=== PATIENT | female | born 1945 | race Caucasian/White ===

== ENCOUNTER 2018-02-11 11:11 | Day surgery (SDC) | payer MEDICARE, OTHER ==
[~2018-02-11] VITALS: Ht 162.6 cm; Wt 102.4 kg
[2018-02-11] VITALS (9 sets, daily range): BP systolic 141–194; BP diastolic 62–99
[2018-02-11] MEDS ORDERED: LOSA50TA3 PO (11:36)
[2018-02-11] MEDS ORDERED: METO-539 PO (11:36)
[2018-02-11] MEDS ORDERED: LANS30CA37 PO (11:36)
[2018-02-11] MEDS ORDERED: GLUC-237 (11:36)
[2018-02-11] MEDS ORDERED: NAPR1TAB28 PO (11:36)
[2018-02-11] MEDS ORDERED: MULT-1085 PO (11:36)
[2018-02-11] MEDS ORDERED: ACET-1025 (11:36)
[2018-02-11] MEDS ORDERED: sod bicarbonate 150mEq in D5W 1,150 ML IV ONE (11:40)
[2018-02-11] MEDS ORDERED: diphenhydrAMINE 25mg capsule PO PRN (11:40)
[2018-02-11 12:45] LABS: ANION GAP 8 (8-16); BLOOD UREA NITROGEN 17 MG/DL (7-18); BUN/CREATININE RATIO 21.5 (6.6-38.0); CALCIUM 9.5 MG/DL (8.5-10.1); CHLORIDE 103 MMOL/L (99-107); CREATININE 0.79 MG/DL (0.40-0.90); GLUCOSE 92 MG/DL (70-104); MAGNESIUM 2.3 MG/DL (1.5-2.4); POTASSIUM 3.9 MMOL/L (3.5-5.1); PROTHROMBIN TIME 10.6 SECONDS (9.0-12.0); SODIUM 143 MMOL/L (135-145); TOTAL CARBON DIOXIDE 31.8 MMOL/L (24-32); eGFR 72 ML/MIN
[2018-02-11 12:46] LABS: BASOPHILS # (AUTO) 0.1 X10'3 (0-0.2); BASOPHILS % (AUTO) 1.4 % (0-1); EOSINOPHILS # (AUTO) 0.3 X10'3 (0-0.9); EOSINOPHILS % (AUTO) 4.5 % (0-6); LYMPHOCYTES # (AUTO) 1.7 X10'3 (1.1-4.8); LYMPHOCYTES % (AUTO) 27.4 % (21-51); MEAN CORPUSCULAR HEMOGLOBIN 30.5 PG (27.0-31.0); MEAN CORPUSCULAR HGB CONC 33.3 % (33.0-36.5); MEAN CORPUSCULAR VOLUME 91.3 FL (78-98); MEAN PLATELET VOLUME 8.7 FL (7.4-10.4); MONOCYTES # (AUTO) 0.5 X10'3 (0-0.9); MONOCYTES % (AUTO) 8.8 % (2-12); NEUTROPHILS # (AUTO) 3.6 X10'3 (1.8-7.7); NEUTROPHILS % (AUTO) 57.9 % (42-75); PRE OP HEMATOCRIT 44.5 % (35.0-45.0); PRE OP HEMOGLOBIN 14.8 g/dL (12.0-16.0); PRE OP PLATELET COUNT 279 X10'3 (140-440); RED BLOOD COUNT 4.87 X10'6 (4.20-5.60); RED CELL DISTRIBUTION WIDTH 12.4 % (11.5-14.5)
[2018-02-11] MEDS ORDERED: pneumococcal 23-VAL P-sac vacc 25 mcg/0.5ml vial IMVAC ONE (12:55)
[2018-02-11] MEDS ORDERED: fentaNYL/PF 50MCG/1 ML 2ML syringe ONE (13:09)
[2018-02-11] MEDS ORDERED: iohexol 350MG/ML 100ml bottle IV ONE (13:10)
[2018-02-11] MEDS ORDERED: iohexol 350 MG/ML 50ML vial IV ONE (13:10)
[2018-02-11] MEDS ORDERED: midazolam 2 mg/2 ml injection ONE (13:10)
[2018-02-11] MEDS ORDERED: LIDOcaine 1% (10mg/ml)w/preservative injection 20ml MDV ONE (13:10)
[2018-02-11] MEDS ORDERED: cloNIDine 0.1 mg tablet PO SCH (14:33)
[2018-02-11] MEDS ORDERED: metoprolol succinate 25mg (24-HOUR) SR. Tablet PO SCH (15:00)
[2018-02-11] MEDS ORDERED: losartan 50mg tablet PO SCH (15:00)
[2018-02-11] MEDS ORDERED: naproxen sodium 220mg tablet PO SCH (20:00)
[2018-02-12] MEDS ORDERED: pantoprazole 40mg Tablet.DR PO SCH (07:30)
[2018-02-12] MEDS ORDERED: multivitamins, therapeutics tablet PO SCH (08:00)
== END 2018-02-11 17:55 | disposition home or self-care (01) ==
LOC: SSTAY O 11:11
PROVIDERS: ATTEND Internal Medicine Cardiovascular Disease
DX: I25.10 Atherosclerotic heart disease of native coronary artery without angina pectoris (principal); I10 Essential (primary) hypertension; E78.5 Hyperlipidemia, unspecified; K21.9 Gastro-esophageal reflux disease without esophagitis; M19.90 Unspecified osteoarthritis, unspecified site; Z72.89 Other problems related to lifestyle; Z87.891 Personal history of nicotine dependence; Z88.5 Allergy status to narcotic agent; Z90.49 Acquired absence of other specified parts of digestive tract; Z90.89 Acquired absence of other organs; Z79.891 Long term (current) use of opiate analgesic; Z79.899 Other long term (current) drug therapy; Z98.890 Other specified postprocedural states
CPT/HCPCS: 36415; 80048; 83735; 85025; 85610; 93005; 93458; 99152; 99153; A6257; C1760; C1769; C1894; J1644; J2001; J2250; J3010; Q0163; Q9967; A4620

== ENCOUNTER 2023-04-04 09:19 | Outpatient (CLI) | payer MEDICARE, OTHER ==
[~2023-04-04 09:19] MED LIST: ACET-1025 PO; ASPI-1 PO; CELE-127 PO; LANS30CA37 PO; METO-539 PO; MULT-1085 PO; NAPR1TAB28 PO; OLME40TA18 PO
[2023-04-04 10:11] LABS: BASOPHILS # (AUTO) 0.1 X10'3 (0-0.2); EOSINOPHILS # (AUTO) 0.3 X10'3 (0-0.9); EOSINOPHILS % (AUTO) 4.1 % (0-6); HEMATOCRIT 38.4 % (35.0-45.0); HEMOGLOBIN 12.9 g/dl (12.0-16.0); LYMPHOCYTES # (AUTO) 1.4 X10'3 (1.1-4.8); LYMPHOCYTES % (AUTO) 19.4 % (21-51); MEAN CORPUSCULAR HEMOGLOBIN 31.2 PG (27.0-31.0); MEAN CORPUSCULAR HGB CONC 33.7 g/dL (33.0-36.5); MEAN CORPUSCULAR VOLUME 92.5 FL (78-98); MEAN PLATELET VOLUME 8.3 FL (7.4-10.4); MONOCYTES # (AUTO) 0.7 X10'3 (0-0.9); MONOCYTES % (AUTO) 9.9 % (2-12); NEUTROPHILS # (AUTO) 4.9 X10'3 (1.8-7.7); NEUTROPHILS % (AUTO) 65.6 % (42-75); PLATELET COUNT 266 X10'3 (140-440); RED BLOOD COUNT 4.15 X10'6 (4.20-5.60); RED CELL DISTRIBUTION WIDTH 12.8 % (11.5-14.5); WHITE BLOOD COUNT 7.5 X10'3 (4.5-11.0)
[2023-04-04 10:15] LABS: APTT 29 SECONDS (22-32)
[2023-04-04 10:28] LABS: ALANINE AMINOTRANSFERASE 19 U/L (12-78); ALBUMIN 3.7 G/DL (3.4-5.0); ALBUMIN/GLOBULIN RATIO 1.3 (1.1-1.5); ALKALINE PHOSPHATASE 98 IU/L (46-116); ANION GAP 6 (8-16); ASPARTATE AMINO TRANSFERASE 17 U/L (10-37); BILIRUBIN,TOTAL 0.5 MG/DL (0.1-1.0); BLOOD UREA NITROGEN 18 MG/DL (7-18); BUN/CREATININE RATIO 26.5 (10.0-20.0); CALCIUM 8.8 MG/DL (8.5-10.1); CHLORIDE 105 MMOL/L (99-107); CREATININE 0.68 MG/DL (0.40-0.90); GLUCOSE 94 MG/DL (70-104); POTASSIUM 4.1 MMOL/L (3.5-5.1); PRO BRAIN NATRIURETIC PEPTIDE 700 PG/ML (0-450); SODIUM 140 MMOL/L (135-145); TOTAL CARBON DIOXIDE 28.6 MMOL/L (24-32); TOTAL PROTEIN 6.6 G/DL (6.4-8.2); eGFR 84 ML/MIN
[2023-04-04] MEDS ORDERED: IODIXANOL 320 MG/ML INFUS..BTL 100ML IV ONE (12:03)
== END 2023-04-04 23:59 | disposition home or self-care (01) ==
LOC: RAD 09:19
PROVIDERS: ATTEND Internal Medicine Cardiovascular Disease
DX: I65.23 Occlusion and stenosis of bilateral carotid arteries (principal); I35.0 Nonrheumatic aortic (valve) stenosis; R06.02 Shortness of breath; M43.17 Spondylolisthesis, lumbosacral region; M47.816 Spondylosis without myelopathy or radiculopathy, lumbar region; Z90.49 Acquired absence of other specified parts of digestive tract; Z90.710 Acquired absence of both cervix and uterus; Z96.612 Presence of left artificial shoulder joint
CPT/HCPCS: 36415; 71046; 71275; 74174; 75574; 80053; 83880; 85025; 85610; 85730; 93880; 94010; 94727; 94729; J3490; Q9967

== ENCOUNTER 2023-04-19 13:42 | Outpatient (CLI) | payer MEDICARE, OTHER ==
[~2023-04-19] VITALS: Ht 160 cm; Wt 98.8 kg
[2023-04-19 14:51] VITALS: BP 227/92; PULSE 72; RESP 16; TEMP 97.4; O2SAT 97
== END 2023-04-19 23:59 | disposition home or self-care (01) ==
LOC: TAVR 13:42
PROVIDERS: ATTEND Internal Medicine Cardiovascular Disease
DX: I08.8 Other rheumatic multiple valve diseases (principal); R06.02 Shortness of breath; I65.29 Occlusion and stenosis of unspecified carotid artery; I11.9 Hypertensive heart disease without heart failure; E78.5 Hyperlipidemia, unspecified
CPT/HCPCS: 93306

== ENCOUNTER 2023-05-11 07:29 | Day surgery (SDC) | payer MEDICARE, OTHER ==
[~2023-05-11] VITALS: Ht 162.6 cm; Wt 97.7 kg
[2023-05-11] VITALS (10 sets, daily range): BP systolic 123–175; BP diastolic 63–90; PULSE 69–87; RESP 16–22; TEMP 98; O2SAT 93–99
[2023-05-11] MEDS ORDERED: diphenhydrAMINE 25mg capsule PO PRN (08:10)
[2023-05-11] MEDS ORDERED: normal saline 1,000 ML IV SCH (08:10)
[2023-05-11] MEDS ORDERED: sodium bicarbonate 1meq/ml syr 150 ML in dextrose 5%-water 1,000 ML IV ONE (08:10)
[2023-05-11] MEDS ORDERED: ROSU20TA73 PO (08:32)
[2023-05-11 08:52] LABS: ALBUMIN 4.3 G/DL (3.4-5.0); ANION GAP 8 (8-16); BLOOD UREA NITROGEN 18 MG/DL (7-18); BUN/CREATININE RATIO 20.2 (10.0-20.0); CALCIUM 9.2 MG/DL (8.5-10.1); CHLORIDE 101 MMOL/L (99-107); CREATININE 0.89 MG/DL (0.40-0.90); GLUCOSE 102 MG/DL (70-104); POTASSIUM 3.9 MMOL/L (3.5-5.1); SODIUM 140 MMOL/L (135-145); eCRCL 46 ML/MIN; eGFR 62 ML/MIN
[2023-05-11 08:54] LABS: BASOPHILS # (AUTO) 0.1 X10'3 (0-0.2); BASOPHILS % (AUTO) 0.9 % (0-1); EOSINOPHILS # (AUTO) 0.2 X10'3 (0-0.9); EOSINOPHILS % (AUTO) 3.1 % (0-6); HEMATOCRIT 43.5 % (35.0-45.0); HEMOGLOBIN 14.6 g/dl (12.0-16.0); LYMPHOCYTES # (AUTO) 1.3 X10'3 (1.1-4.8); LYMPHOCYTES % (AUTO) 18.8 % (21-51); MEAN CORPUSCULAR HGB CONC 33.5 g/dL (33.0-36.5); MEAN CORPUSCULAR VOLUME 92.4 FL (78-98); MEAN PLATELET VOLUME 8.3 FL (7.4-10.4); MONOCYTES # (AUTO) 0.6 X10'3 (0-0.9); MONOCYTES % (AUTO) 8.8 % (2-12); NEUTROPHILS # (AUTO) 4.9 X10'3 (1.8-7.7); NEUTROPHILS % (AUTO) 68.4 % (42-75); PLATELET COUNT 257 X10'3 (140-440); RED CELL DISTRIBUTION WIDTH 13.3 % (11.5-14.5); WHITE BLOOD COUNT 7.1 X10'3 (4.5-11.0)
[2023-05-11 09:12] LABS: PROTHROMBIN TIME 10.8 SECONDS (9.0-12.0)
[2023-05-11] MEDS ORDERED: iohexol 350 MG/ML 50ML vial IV ONE ×2 (11:42→13:03)
[2023-05-11] MEDS ORDERED: heparin 1,000unit/ml 10ml vial 10 ML ONE (11:42)
[2023-05-11] MEDS ORDERED: LIDOcaine 1% (10mg/ml) 2ml vial ONE (11:42)
[2023-05-11] MEDS ORDERED: verapamil 2.5 mg/ml inj IV ONE (11:42)
[2023-05-11] MEDS ORDERED: iohexol 350MG/ML 100ml bottle IV ONE (11:43)
[2023-05-11] MEDS ORDERED: nitroGLYCERIN 500mcg/5mL D5W 5 ML IV ONE (11:44)
[2023-05-11] MEDS ORDERED: fentaNYL/PF 50MCG/1 ML 2ML syringe ONE (11:48)
[2023-05-11] MEDS ORDERED: midazolam 1 mg/ML 2ml injection ONE (11:48)
[2023-05-11] MEDS ORDERED: hydrALAZINE 20mg/ml inj. IV ONE (13:12)
[2023-05-11] MEDS ORDERED: ondansetron/PF 4mg/2ml inj IV PRN (14:40)
[2023-05-11] MEDS ORDERED: ondansetron/PF 4mg/2ml inj ONE (14:42)
[2023-05-14] MEDS ORDERED: ACET-1025 PO (10:36)
== END 2023-05-11 16:40 | disposition home or self-care (01) ==
LOC: SSTAY O 07:29
PROVIDERS: ATTEND Internal Medicine Cardiovascular Disease
DX: I25.10 Atherosclerotic heart disease of native coronary artery without angina pectoris (principal); I10 Essential (primary) hypertension; E78.5 Hyperlipidemia, unspecified; I08.0 Rheumatic disorders of both mitral and aortic valves; I27.20 Pulmonary hypertension, unspecified; Z79.899 Other long term (current) drug therapy
CPT/HCPCS: 36415; 80048; 85025; 85610; 93005; 93460; 99152; 99153; C1769; J0360; J1644; J2250; J2405; J3010; J3490; J7030; Q0163; Q9967; A6258; A6402; C1751; C1894

== ENCOUNTER 2023-05-17 07:46 | Inpatient (IN) | payer MEDICARE, OTHER ==
[2023-05-14 10:52] LABS: BILIRUBIN,URINE NEGATIVE (Neg); CLARITY,URINE SLIGHTLY CLOUDY (Clear); COLOR,URINE YELLOW (Yellow); GLUCOSE, URINE NEGATIVE (Neg); KETONES,URINE NEGATIVE (Neg); LEUKOCYTE ESTERASE ,URINE MODERATE (Neg); NITRITES, URINE NEGATIVE (Neg); OCCULT BLOOD,URINE NEGATIVE (Neg); PH,URINE 6.5 (4.8-8.0); PROTEIN,URINE NEGATIVE (Neg); UROBILINOGEN,URINE 0.2 E.U/dL (0.2-1.0)
[2023-05-14 10:56] LABS: BASOPHILS # (AUTO) 0.1 X10'3 (0-0.2); BASOPHILS % (AUTO) 1.2 % (0-1); EOSINOPHILS # (AUTO) 0.2 X10'3 (0-0.9); EOSINOPHILS % (AUTO) 3.3 % (0-6); LYMPHOCYTES # (AUTO) 1.1 X10'3 (1.1-4.8); LYMPHOCYTES % (AUTO) 15.6 % (21-51); MEAN CORPUSCULAR HEMOGLOBIN 30.9 PG (27.0-31.0); MEAN CORPUSCULAR HGB CONC 33.3 g/dL (33.0-36.5); MEAN CORPUSCULAR VOLUME 92.7 FL (78-98); MEAN PLATELET VOLUME 8.3 FL (7.4-10.4); MONOCYTES # (AUTO) 0.7 X10'3 (0-0.9); MONOCYTES % (AUTO) 9.4 % (2-12); NEUTROPHILS % (AUTO) 70.5 % (42-75); PRE OP HEMATOCRIT 39.6 % (35.0-45.0); PRE OP HEMOGLOBIN 13.2 g/dL (12.0-16.0); PRE OP PLATELET COUNT 256 X10'3 (140-440); PRE OP WHITE BLOOD COUNT 7.1 10'3 (4.8-10.8); RED BLOOD COUNT 4.27 X10'6 (4.20-5.60); RED CELL DISTRIBUTION WIDTH 13.2 % (11.5-14.5)
[2023-05-14 11:08] LABS: UA COLLECTION TYPE CLN CATCH MIDSTREAM
[2023-05-14 11:21] LABS: PRE OP INR 1.1 INR; PRE OP PROTIME 11.4 SECONDS (9.0-12.0)
[2023-05-14 11:32] LABS: ALBUMIN 3.7 G/DL (3.4-5.0); ALKALINE PHOSPHATASE 88 IU/L (46-116); BACTERIA,URINE 2+ /HPF (Neg); BLOOD UREA NITROGEN 16 MG/DL (7-18); BUN/CREATININE RATIO 20.8 (10.0-20.0); CALCIUM 9.3 MG/DL (8.5-10.1); CHLORIDE 103 MMOL/L (99-107); CREATININE 0.77 MG/DL (0.40-0.90); HYALINE CASTS 0-3 /LPF (NEGATIVE); MUCUS STRANDS FEW /LPF (Neg); PRE OP ALT 32 U/L (30-65); PRE OP ANION GAP 8 (8-16); PRE OP AST 31 U/L (10-37); PRE OP BILIRUB, TOTAL 0.5 MG/DL (0.0-1.0); PRE OP GLUCOSE 104 MG/DL (70-104); PRE OP POTASSIUM 4.2 MMOL/L (3.4-5.1); PRE OP SODIUM 141 MMOL/L (135-145); PRO BRAIN NATRIURETIC PEPTIDE 284 PG/ML (0-450); SQUAMOUS EPITHELIAL CELL,UR MANY /LPF (FEW); TOTAL CARBON DIOXIDE 30.4 MMOL/L (24-32); TOTAL PROTEIN 7.3 G/DL (6.4-8.2); eGFR 73 ML/MIN
[2023-05-14 11:33] LABS: TRANSITIONAL EPI CELLS,URINE FEW /HPF; WBC,URINE 20-30 /HPF (0-4)
[~2023-05-17] VITALS: Ht 162.6 cm; Wt 97.3 kg
[2023-05-17] VITALS (32 sets, daily range): BP systolic 120–188; BP diastolic 59–95; PULSE 60–80; RESP 12–19; TEMP 97.2–97.6; O2SAT 92–100
[2023-05-17] MEDS: phenylephrine inj 50 MG in normal saline 250ml IV solN IV SCH ×2 (05:30→11:59)
[2023-05-17] MEDS: nitroPRUSSIDE (NIPRIDE) (200MCG/ML) 100ML Drip IV SCH ×2 (05:30→12:00)
[~2023-05-17 07:46] MED LIST changes: -ASPI-1 PO; +DOCUMENT DATE & TIME OF BETA-BLOCKER PO ONE; +IBUP-2697 PO; -NAPR1TAB28 PO; +ROSU40TA22 PO; +aspirin 325mg tablet PO ONE; +cefazolin 2gm/D5W 100mL 100 ML IV ONE; +famotidine 20mg tablet PO ONE; +nitroPRUSSIDE (NIPRIDE) (200MCG/ML) 100ML Drip IV SCH; +ondansetron/PF 4mg/2ml inj IV PRN; +phenylephrine inj 50 MG in normal saline 250ml IV solN IV SCH; +protamine sulfate 10mg/ml inj. ONE; +ringers solution, lacted 1,000 ML IV SCH; +vancomycin 1,500 MG in NS 300ml IV soln IV ONE
[2023-05-17] MEDS ORDERED: protamine sulf. 10mg/ml inj. IV ONE (10:00)
[2023-05-17] MEDS ORDERED: LIDOcaine 1% (10mg/ml) 2ml vial ONE (10:05)
[2023-05-17] MEDS ORDERED: ibuprofen 200mg tablet PO PRN (10:35)
[2023-05-17] MEDS ORDERED: LIDOcaine 1% 30ml preserv. free vial ONE (10:35)
[2023-05-17] MEDS ORDERED: iohexol 350MG/ML 100ml bottle IV ONE (10:35)
[2023-05-17] MEDS ORDERED: heparin 1,000 UNITS/NS 500ml 1,500 ML ONE (10:35)
[2023-05-17] MEDS ORDERED: fentaNYL/PF 50MCG/1 ML 2ML syringe ONE (10:46)
[2023-05-17] MEDS ORDERED: midazolam 1 mg/ML 2ml injection ONE (10:46)
[2023-05-17] MEDS ORDERED: acetaminophen 325mg tablet PO PRN ×2 (11:00→11:55)
[2023-05-17] MEDS ORDERED: proCHLORperazine 10 MG/2 ml inj IV PRN ×2 (11:50→11:55)
[2023-05-17] MEDS ORDERED: fentaNYL/PF 50MCG/1 ML 2ML syringe IV PRN ×2 (11:50)
[2023-05-17] MEDS ORDERED: acetaminophen 1,000mg/100ml IV 100 ML IV ONE (11:50)
[2023-05-17] MEDS ORDERED: meperidine/PF 25mg/ml syringe IV PRN ×3 (11:50)
[2023-05-17] MEDS ORDERED: ringers solution, lacted 1,000 ML IV SCH (11:50)
[2023-05-17] MEDS ORDERED: ondansetron/PF 4mg/2ml inj IV PRN ×2 (11:50→11:55)
[2023-05-17] MEDS ORDERED: heparin 1,000unit/ml 10ml vial 10 ML ONE (11:54)
[2023-05-17] MEDS ORDERED: propofol inj 20 ML IV ONE ×2 (11:54)
[2023-05-17] MEDS ORDERED: magnesium 2GM in 50ml NS 50 ML IV PRN (11:55)
[2023-05-17] MEDS ORDERED: normal saline 1000ml 1,000 ML IV SCH (11:55)
[2023-05-17] MEDS ORDERED: hydrALAZINE 20mg/ml inj. IV PRN (11:55)
[2023-05-17] MEDS ORDERED: ALPRAZolam 0.25mg tablet PO PRN (11:55)
[2023-05-17] MEDS ORDERED: magnesium 4gm in 100ml NS 100 ML IV PRN (11:55)
[2023-05-17] MEDS ORDERED: diphenhydrAMINE 25mg capsule PO PRN (11:55)
[2023-05-17] MEDS ORDERED: potassium Cl 40MEQ/270ML bag 250 ML IV PRN (11:55)
[2023-05-17] MEDS ORDERED: HYDROcodone/acetaminophen 5mg/325mg tablet PO PRN (11:55)
[2023-05-17] MEDS ORDERED: potassium Cl 40MEQ/1/2NS 520ml 520 ML IV PRN (11:55)
[2023-05-17] MEDS ORDERED: potassium CL 10mEq/100ml bag 100 ML IV PRN (11:55)
[2023-05-17] MEDS ORDERED: labetalol 20mg/4ml (5mg/ml) syringe IV PRN (11:55)
[2023-05-17] MEDS ORDERED: pantoprazole 40mg Tablet.DR PO PRN (11:55)
[2023-05-17] MEDS ORDERED: potassium Cl 20mEq/100mL bag 100 ML IV PRN (11:55)
[2023-05-17] MEDS ORDERED: potassium Cl 20 mEq SR tablet PO PRN (11:55)
[2023-05-17] MEDS ORDERED: docusate sod 100mg capsule PO PRN (11:55)
[2023-05-17] MEDS: labetalol 20mg/4ml (5mg/ml) syringe IV PRN ×2 (12:12→12:36)
[2023-05-17] MEDS: hydrALAZINE 20mg/ml inj. IV PRN ×2 (12:47→13:09)
[2023-05-17] MEDS: ceFAZolin 1GM/D5W- ADD-VANTAGE 50 ML IV SCH (15:54)
[2023-05-17] MEDS ORDERED: sod chloride 0.9% 10ml flush syringe IV SCH (16:00)
[2023-05-17] MEDS: acetaminophen 325mg tablet PO PRN (16:37)
[2023-05-17] MEDS: vancomycin/NS 1 GM ADD-VANTAGE 250 ML IV SCH (20:00)
[2023-05-18] VITALS (7 sets, daily range): BP systolic 115–155; BP diastolic 53–90; PULSE 66–86; RESP 10–22; TEMP 97–98.3; O2SAT 92–96
[2023-05-18] MEDS: ceFAZolin 1GM/D5W- ADD-VANTAGE 50 ML IV SCH ×2 (00:33→07:56)
[2023-05-18] MEDS: acetaminophen 325mg tablet PO PRN (02:00)
[2023-05-18 07:53] LABS: BASOPHILS # (AUTO) 0.1 X10'3 (0-0.2); BASOPHILS % (AUTO) 0.6 % (0-1); EOSINOPHILS # (AUTO) 0.1 X10'3 (0-0.9); EOSINOPHILS % (AUTO) 1.3 % (0-6); HEMATOCRIT 36.1 % (35.0-45.0); HEMOGLOBIN 12.2 g/dl (12.0-16.0); LYMPHOCYTES # (AUTO) 0.8 X10'3 (1.1-4.8); LYMPHOCYTES % (AUTO) 8.3 % (21-51); MEAN CORPUSCULAR HEMOGLOBIN 31.4 PG (27.0-31.0); MEAN CORPUSCULAR HGB CONC 33.9 g/dL (33.0-36.5); MEAN CORPUSCULAR VOLUME 92.6 FL (78-98); MEAN PLATELET VOLUME 8.6 FL (7.4-10.4); MONOCYTES # (AUTO) 1.2 X10'3 (0-0.9); MONOCYTES % (AUTO) 12.3 % (2-12); NEUTROPHILS # (AUTO) 7.7 X10'3 (1.8-7.7); NEUTROPHILS % (AUTO) 77.5 % (42-75); PLATELET COUNT 183 X10'3 (140-440); RED CELL DISTRIBUTION WIDTH 13.6 % (11.5-14.5); WHITE BLOOD COUNT 9.9 X10'3 (4.5-11.0)
[2023-05-18] MEDS: vancomycin/NS 1 GM ADD-VANTAGE 250 ML IV SCH (07:57)
[2023-05-18] MEDS ORDERED: metoprolol succinate 25mg (24-HOUR) SR. Tablet PO SCH (08:00)
[2023-05-18] MEDS ORDERED: pantoprazole 40mg Tablet.DR PO SCH (08:00)
[2023-05-18] MEDS ORDERED: atorvastatin 20mg tablet PO SCH (08:00)
[2023-05-18] MEDS ORDERED: CELECOXIB 200 MG PO SCH (08:00)
[2023-05-18] MEDS ORDERED: multivitamins, therapeutics tablet PO SCH (08:00)
[2023-05-18] MEDS ORDERED: losartan 50mg tablet PO SCH (08:00)
[2023-05-18 08:25] LABS: ALANINE AMINOTRANSFERASE 22 U/L (12-78); ALBUMIN 3.1 G/DL (3.4-5.0); ALKALINE PHOSPHATASE 83 IU/L (46-116); ANION GAP 9 (8-16); ASPARTATE AMINO TRANSFERASE 30 U/L (10-37); BILIRUBIN,TOTAL 0.7 MG/DL (0.1-1.0); BLOOD UREA NITROGEN 12 MG/DL (7-18); BUN/CREATININE RATIO 16.4 (10.0-20.0); CALCIUM 8.5 MG/DL (8.5-10.1); CHLORIDE 103 MMOL/L (99-107); CREATININE 0.73 MG/DL (0.40-0.90); GLUCOSE 115 MG/DL (70-104); MAGNESIUM 2.2 MG/DL (1.5-2.4); POTASSIUM 3.9 MMOL/L (3.5-5.1); PRO BRAIN NATRIURETIC PEPTIDE 840 PG/ML (0-450); SODIUM 137 MMOL/L (135-145); TOTAL CARBON DIOXIDE 25.3 MMOL/L (24-32); TOTAL PROTEIN 6.3 G/DL (6.4-8.2); eCRCL 56 ML/MIN; eGFR 77 ML/MIN
[2023-05-18] MEDS ORDERED: aspirin 81mg tab.chew PO SCH (08:30)
[2023-05-18] MEDS ORDERED: METO50TA7 PO (16:12)
[2023-05-18] MEDS ORDERED: ASPI81TA53 PO (16:12)
[2023-05-19] MEDS ORDERED: celeCOXIB 100mg capsule PO SCH (08:00)
== END 2023-05-18 17:43 | disposition home or self-care (01) | DRG 266 ==
LOC: PAS IN 07:46 → PCU 3S 18:03
PROVIDERS: ADMIT Internal Medicine Cardiovascular Disease; ATTEND Internal Medicine Cardiovascular Disease
PROC: 03HY32Z Insertion of Monitoring Device into Upper Artery, Percutaneous Approach (ICD-10-PCS; 2023-05-17)
PROC: B41D1ZZ Fluoroscopy of Aorta and Bilateral Lower Extremity Arteries using Low Osmolar Contrast (ICD-10-PCS; 2023-05-17)
PROC: 02RF38Z Replacement of Aortic Valve with Zooplastic Tissue, Percutaneous Approach (ICD-10-PCS; principal; 2023-05-17 10:45)
DX: I35.0 Nonrheumatic aortic (valve) stenosis (principal); Z00.6 Encounter for examination for normal comparison and control in clinical research program; I50.33 Acute on chronic diastolic (congestive) heart failure; I11.0 Hypertensive heart disease with heart failure; G89.29 Other chronic pain; E78.5 Hyperlipidemia, unspecified; M17.10 Unilateral primary osteoarthritis, unspecified knee; Z79.899 Other long term (current) drug therapy; Z88.5 Allergy status to narcotic agent; I35.1 Nonrheumatic aortic (valve) insufficiency; I34.0 Nonrheumatic mitral (valve) insufficiency
CPT/HCPCS: 33361; 36415; 71045; 71046; 76937; 80053; 81001; 82948; 83735; 83880; 85025; 85347; 85610; 85730; 86885; 86900; 86901; 86920; 87081; 93005; 93308; 96360; A4618; A6258; A6449; C1756; C1760; C1769; C1894; G0378; J0360; J0690; J1644; J2250; J2370; J2405; J2704; J2720; J3010; J3370; J3490; J7030; J7040; J7050; J7120; Q9967